=== PATIENT | male | born 1995 ===

== ENCOUNTER 2018-12-17 09:40 | Emergency (ER) | payer SELFPAY ==
[2018-12-17] MEDS ORDERED: Naproxen 550 mg Tab PO STA (10:11)
[2018-12-17 10:13] VITALS: BP 127/97; PULSE 70; RESP 18; TEMP 98.4; O2SAT 99
[2018-12-17] MEDS ORDERED: Naproxen 550 mg Tab PO ONE (10:20)
--- NOTE | 2018-12-17 10:51 | C.PDOC ---
History Of Present Illness 23 year old male patient with history of asthma presents to the ER complaining of tingling sensation anterior medial aspect of the left upper arm radiating to the 4th digit. Associated symptoms includes light headedness. He denies neck pain, headache, and weakness. Patient reports he was lying in bed watching TV. Time Seen by Provider: 12/17/18 09:58 Chief Complaint (Nursing): Upper Extremity Problem/Injury History Per: Patient History/Exam Limitations: no limitations Onset/Duration Of Symptoms: Hrs Current Symptoms Are (Timing): Still Present Past Medical History Reviewed: Historical Data, Nursing Documentation, Vital Signs Vital Signs: Last Vital Signs Temp 98.4 F 12/17/18 09:48 Pulse 70 12/17/18 09:48 Resp 18 12/17/18 09:48 BP 127/97 H 12/17/18 09:48 Pulse Ox 99 12/17/18 09:48 - Medical History PMH: Asthma Surgical History: Tonsillectomy Family History: States: No Known Family Hx - Social History Hx Alcohol Use: Yes Hx Substance Use: No - Immunization History Hx Tetanus Toxoid Vaccination: No Hx Influenza Vaccination: No Hx Pneumococcal Vaccination: No Review Of Systems Except As Marked, All Systems Reviewed And Found Negative. Cardiovascular: Positive for: Light Headedness Musculoskeletal: Negative for: Neck Pain Neurological: Positive for: Other (tingling sensation to the anterior medial asp ect of the left upper arm radiating to the 4th digit. ). Negative for: Weakness, Headache Physical Exam - Physical Exam Appears: Non-toxic, No Acute Distress Skin: Warm, Dry, No Rash Head: Atraumatic, Normacephalic Eye(s): bilateral: Normal Inspection Oral Mucosa: Moist Throat: Normal, No Erythema, No Exudate Neck: Normal ROM, Trachea Midline, No Midline Cervical Tenderness, No Pa racervical Tenderness, Supple Chest: Symmetrical, No Deformity, No Tenderness Cardiovascular: Rhythm Regular, No Friction Rub, No Murmur Respiratory: Normal Breath Sounds Gastrointestinal/Abdominal: Soft, No Tenderness Back: No CVA Tenderness, No Vertebral Tenderness, No Paraspinal Tenderness Extremity: Normal ROM (x4), No Tenderness, Capillary Refill (<2 sec ), No Deformity, No Swelling Pulses: Left Radial: Normal Neurological/Psych: Oriented x3, Normal Speech, Normal Cognition, Normal Motor (5/5), Normal Sensation Gait: Steady ED Course And Treatment O2 Sat by Pulse Oximetry: 99 (RA) Pulse Ox Interpretation: Normal Medical Decision Making Medical Decision Making: Plans: -- naproxen -- Valium On re-exam, the patient reports improvement of symptoms. Lungs are CTA, heart is RRR, abdomen is soft, non-tender and the patient is tolerating PO well. Ambulatory in the ED with steady gait. Follow up with you medical doctor within 1-2 days without fail. Return if worsened. Disposition - Disposition Referrals: Jacob Hidalgo MD [Non-Staff] - Disposition: HOME/ ROUTINE Disposition Time: 11:08 Condition: IMPROVED Additional Instructions: Follow up with the medical doctor within 1-2 days. Return if worsened. Prescriptions: Cyclobenzaprine [Flexeril] 5 mg PO TID #21 tab Naproxen [Naprosyn] 500 mg PO BID #20 tab Instructions: Radiculopathy Forms: [employer] (Italian) - Clinical Impression Clinical Impression: Cervical radiculopathy - PA / HOME CARE AIDE / Resident Statement / has reviewed & agrees with the documentation as recorded. - Scribe Statement The provider has reviewed the documentation as recorded by the Jose Luis Weiner Do All medical record entries made by the Scribe were at my direction and personally dictated by me. I have reviewed the chart and agree that the record accurately reflects my personal performance of the history, physical exam, medical decision making, and the department course for this patient. I have also personally directed, reviewed, and agree with the discharge instructions and disposition.
== END 2018-12-17 11:42 | disposition home or self-care (01) ==
LOC: C.ER 09:40 → MERGE 09:40 → C.ER 11:42
DX: M54.12 Radiculopathy, cervical region (principal)